=== PATIENT | female | born 1930 ===

== ENCOUNTER → 2017-02-04 | Outpatient (CLI) | payer MEDICARE ==
[2017-02-04 16:11] LABS: CALCIUM 8.8 mg/dL (8.5-10.1); GFR 52.3
== END | disposition home or self-care (01) ==
LOC: SPEC 15:48
DX: E11.42 Type 2 diabetes mellitus with diabetic polyneuropathy (principal); I50.43 Acute on chronic combined systolic (congestive) and diastolic (congestive) heart failure
CPT/HCPCS: 36415; 80048